=== PATIENT | female | born 1960 | race Caucasian/White ===

== ENCOUNTER → 2016-12-01 | Outpatient (CLI) | payer BC, OTHER ==
[~2016-12-01] MED LIST: IOPAMIDOL (ISOVUE-370) 150 ML BTL IV ONE
== END ==
LOC: FIMAGING 10:24
PROVIDERS: ATTEND Psychiatry & Neurology Neurology
DX: G44.209 Tension-type headache, unspecified, not intractable (principal)
CPT/HCPCS: Q9967

== ENCOUNTER → 2017-08-03 | Outpatient (CLI) | payer BC | LOC: BMCIMAGING 13:19 | PROVIDERS: ATTEND Internal Medicine | DX: J18.9 Pneumonia, unspecified organism (principal) ==

== ENCOUNTER → 2017-08-15 | Outpatient (CLI) | payer BC | LOC: BMCIMAGING 13:05 | PROVIDERS: ATTEND Nurse Practitioner Adult Health | DX: J18.9 Pneumonia, unspecified organism (principal) ==

== ENCOUNTER → 2017-09-11 | Outpatient (CLI) | payer BC | LOC: FIMAGING 10:32 | PROVIDERS: ATTEND Obstetrics & Gynecology Gynecology | DX: Z12.31 Encounter for screening mammogram for malignant neoplasm of breast (principal) | CPT/HCPCS: G0202 ==

== ENCOUNTER 2017-09-25 14:21 | Inpatient (IN) | payer BC ==
--- NOTE | 2017-09-25 15:01 | EDPHY ---
H & P Time Seen by Provider: 09/25/17 14:42 HPI/ROS: CHIEF COMPLAINT: Pneumonia HISTORY OF PRESENT ILLNESS: This 57-year-old woman presents with pneumonia on chest x-ray today which is bilateral. She was treated 6 weeks ago 1st with azithromycin then with Augmentin and finally with Levaquin but only got a little bit better. For the last week she states that she has felt hot and cold , had a fever, a "crackling when I exhale "and a cough that is not productive of sputum or hemoptysis. Chest x-ray today shows bilateral pneumonia and she is sent to the emergency department. No recent travel or immobilization and no family history of DVT or PE. No exposure to birds or other exotic animals, she does have cats at home. No road index but. REVIEW OF SYSTEMS: Eye: no change in vision ENT: no sore throat Cardiac: no chest pain or syncope Pulmonary: HPI Abdomen: no vomiting, diarrhea, abdominal pain Musculoskeletal: Chronic neck or older and lower back pain, unchanged Skin: no rash Neuro: no headache Constitutional: HPI : no urinary symptoms A comprehensive 10 point review of systems is otherwise negative aside from elements mentioned in the history of present illness. PAST MEDICAL HISTORY: Attention deficit hyperactivity disorder on Celexa and Adderall Social history: Nonsmoker, no drugs, no recent travel. General Appearance: Alert and conversant, cooperative. Eyes: No scleral icterus. ENT, Mouth: Normal mucous membranes. Respiratory: Occasional faint crackles heard patient speaks in full sentences. Cardiovascular: Regular rate and rhythm. Gastrointestinal: Abdomen is soft and non tender. Neurological: Alert and oriented x3. Normally conversant. Face symmetric, normal movement and sensation in all extremities. Skin: Warm and dry, no rashes. Musculoskeletal: No calf tenderness. Psychiatric: Not agitated. Emergency Department course/MDM: Low pretest probability for pulmonary embolism. Patient has worsening pneumonia despite outpatient antibiotic therapy. Plan for lactate screening, blood culture, admission for IV antibiotics and D-dimer screening. Meropenem chosen for broad-spectrum given the fact that the patient has been on quinolone, penicillin, and macrolide all recently without improvement. 1540: Discussed with [facility] hospitalist 1545: CTA discussed and consented with patient given elevated D-dimer and persistent pulmonary infiltrates. 1655: CT per Dr. Smith shows pneumonia but no evidence of pulmonary embolism or mass. 1715: CT results discussed with the patient and family. Smoking Status: Never smoked Constitutional: Initial Vital Signs Temperature (C) 37.2 C 09/25/17 14:27 Heart Rate 88 09/25/17 14:27 Respiratory Rate 14 09/25/17 14:27 Blood Pressure 93/56 L 09/25/17 14:27 O2 Sat (%) 94 09/25/17 14:27 O2 Delivery Mode Room Air Allergies/Adverse Reactions: benzoyl peroxide Allergy (Verified 09/25/17 14:24) ibuprofen Allergy (Verified 09/25/17 16:24) ULCER Milk Containing Products [dairy] Allergy (Verified 09/25/17 14:24) FLOUR Allergy (Uncoded 09/25/17 14:24) GRAINS Allergy (Uncoded 09/25/17 14:24) SUGAR Allergy (Uncoded 09/25/17 14:24) Home Medications: Medication Instructions Recorded Albuterol Sulfate [Proair Hfa] 1 puffs IH TID 09/25/17 Cetirizine [ZyrTEC 10 mg (*)] 10 mg PO DAILY 09/25/17 Citalopram Hydrobromide 10 mg PO HS 09/25/17 [Citalopram HBr] Cyclobenzaprine [Flexeril 10 MG 10 mg PO HS 09/25/17 (*)] Dextroamphetamine/Amphetamine 25 mg PO BID@05,10 09/25/17 [Adderall 12.5 mg Tablet] Herbals/Supplements -Info Only 1 ea PO DAILY 09/25/17 [place]-3 Fatty Acids [Fish Oil 1000 1,000 mg PO DAILY 09/25/17 mg (*)] Progesterone, Micronized 100 mg PO HS 09/25/17 [Progesterone] guaiFENesin [Mucinex 600 MG (*)] 600 mg PO BID 09/25/17 traMADol [Ultram 50 mg (*)] 50 mg PO HS 09/25/17 Medical Decision Making - Diagnostics Imaging Results: Imaging Impressions Chest X-Ray 09/25/17 10:43 Impression: 1. Increase in bilateral consolidation/pneumonia. Consider aspiration. Findings discussed with medical van driver with Grayson Moya MD at 11:49 hour, 09/25/2017. Chest/Thorax CTA 09/25/17 15:43 Impression: 1. No visible pulmonary embolus. 2. Dense multifocal consolidation suggesting pneumonia. Findings discussed with Dr. Chay Sanchez on 09/25/2017 at 16:52. Differential Diagnosis: Differential considered including but not limited to pneumonia, pulmonary embolism, aspiration, pulmonary mass. - Data Points Laboratory Results: Laboratory Results 09/25/17 15:05 09/25/17 15:05 09/25/17 09/25/17 09/25/17 15:05 15:05 15:05 WBC RBC Hgb Hct MCV MCH MCHC RDW Plt Count MPV Neut % (Auto) Lymph % (Auto) [place] % (Auto) Eos % (Auto) Baso % (Auto) Nucleat RBC Rel Count Absolute Neuts (auto) Absolute Lymphs (auto) Absolute Monos (auto) Absolute Eos (auto) Absolute Basos (auto) Absolute Nucleated RBC Immature Gran % Immature Gran # PT 14.3 SEC SEC (12.0-15.0) INR 1.09 (0.83-1.16) APTT 35.6 SEC SEC (23.0-38.0) D-Dimer 0.82 ug/mLFEU H ug/mLFEU (0.00-0.50) VBG Lactic Acid 1.0 mmol/L mmol/L (0.7-2.1) Sodium 139 mEq/L mEq/L (134-144) Potassium 4.3 mEq/L mEq/L (3.5-5.2) Chloride 102 mEq/L mEq/L (97-110) Carbon Dioxide 26 mEq/l mEq/l (22-31) Anion Gap 11 mEq/L mEq/L (8-16) BUN 15 mg/dL mg/dL (7-23) Creatinine 0.5 mg/dL L mg/dL (0.6-1.0) Estimated GFR > 60 Glucose 105 mg/dL H mg/dL (70-100) Calcium 9.1 mg/dL mg/dL (8.5-10.4) Total Bilirubin < 0.1 mg/dL L mg/dL (0.1-1.4) 09/25/17 15:05 WBC 7.93 10^3/uL 10^3/uL (3.80-9.50) RBC 3.59 10^6/uL L 10^6/uL (4.18-5.33) Hgb 11.1 g/dL L g/dL (12.6-16.3) Hct 33.2 % L % (38.0-47.0) MCV 92.5 fL fL (81.5-99.8) MCH 30.9 pg pg (27.9-34.1) MCHC 33.4 g/dL g/dL (32.4-36.7) RDW 12.7 % % (11.5-15.2) Plt Count 467 10^3/uL H 10^3/uL (150-400) MPV 8.6 fL L fL (8.7-11.7) Neut % (Auto) 78.4 % H % (39.3-74.2) Lymph % (Auto) 10.8 % L % (15.0-45.0) [place] % (Auto) 7.6 % % (4.5-13.0) Eos % (Auto) 2.3 % % (0.6-7.6) Baso % (Auto) 0.6 % % (0.3-1.7) Nucleat RBC Rel Count 0.0 % % (0.0-0.2) Absolute Neuts (auto) 6.22 10^3/uL 10^3/uL (1.70-6.50) Absolute Lymphs (auto) 0.86 10^3/uL L 10^3/uL (1.00-3.00) Absolute Monos (auto) 0.60 10^3/uL 10^3/uL (0.30-0.80) Absolute Eos (auto) 0.18 10^3/uL 10^3/uL (0.03-0.40) Absolute Basos (auto) 0.05 10^3/uL 10^3/uL (0.02-0.10) Absolute Nucleated RBC 0.00 10^3/uL 10^3/uL (0-0.01) Immature Gran % 0.3 % % (0.0-1.1) Immature Gran # 0.02 10^3/uL 10^3/uL (0.00-0.10) PT INR APTT D-Dimer VBG Lactic Acid Sodium Potassium Chloride Carbon Dioxide Anion Gap BUN Creatinine Estimated GFR Glucose Calcium Total Bilirubin Microbiology Results: MICROBIOLOGY 09/25/17 15:05 Nasal, Sinus - Swab Respiratory Panel (PCR) - Final No Organism Detected Medications Given: Discontinued Medications Meropenem 1 gm/ Sodium (Chloride) 120 mls @ 120 mls/hr IV EDNOW ONE PRN Reason: Protocol Stop: 09/25/17 16:46 Last Admin: 09/25/17 17:04 Dose: 120 mls Departure - Departure Disposition: [facility] Inpatient Acute Clinical Impression: Pneumonia Qualifiers: Pneumonia type: due to unspecified organism Laterality: bilateral Lung location : unspecified part of lung Qualified Code(s): J18.9 - Pneumonia, unspecified organism Condition: Good
[2017-09-25 15:18] LABS: % IMMATURE GRANULYOCYTES 0.3 % (0.0-1.1); ABSOLUTE IMMATURE GRANULOCYTES 0.02 10^3/uL (0.00-0.10); ADD DIFF? NO; ADD MORPH? NO; ADD SCAN? NO; ATYPICAL LYMPHOCYTE FLAG 0 (0-99); FRAGMENT RBC FLAG 0 (0-99); HEMATOCRIT 33.2 % (38.0-47.0); HEMOGLOBIN 11.1 g/dL (12.6-16.3); LEFT SHIFT FLG 0 (0-99); LIPEMIA HEMOLYSIS FLAG 80 (0-99); MEAN CELL HEMOGLOBIN 30.9 pg (27.9-34.1); MEAN CELL HEMOGLOBIN CONCENTR. 33.4 g/dL (32.4-36.7); MEAN CELL VOLUME 92.5 fL (81.5-99.8); MEAN PLATELET VOLUME 8.6 fL (8.7-11.7); PLATELET CLUMPS FLAG 0 (0-99); PLATELET COUNT 467 10^3/uL (150-400); RED BLOOD CELL COUNT 3.59 10^6/uL (4.18-5.33); RED CELL DISTRIBUTION WIDTH 12.7 % (11.5-15.2)
[2017-09-25 15:27] LABS: INR 1.09 (0.83-1.16); PROTIME(PATIENT) 14.3 SEC (12.0-15.0)
[2017-09-25 15:28] LABS: APTT 35.6 SEC (23.0-38.0)
[2017-09-25 15:36] LABS: ANION GAP 11 mEq/L (8-16); CALCIUM 9.1 mg/dL (8.5-10.4); CARBON DIOXIDE 26 mEq/l (22-31); CHLORIDE 102 mEq/L (97-110); CREATININE 0.5 mg/dL (0.6-1.0); GLOMERULAR FILTRATION RATE > 60; GLUCOSE 105 mg/dL (70-100); POTASSIUM 4.3 mEq/L (3.5-5.2); SODIUM 139 mEq/L (134-144)
[2017-09-25 15:40] LABS: BILIRUBIN,TOTAL < 0.1 mg/dL (0.1-1.4)
[2017-09-25] MEDS ORDERED: MEROPENEM 1 GM in NS 100 ML IV ONE (15:47)
[2017-09-25] MEDS ORDERED: ONDANSETRON DISINTEGRATING 4 MG TAB PO PRN (15:48)
[2017-09-25] MEDS ORDERED: ONDANSETRON 4 MG/2 ML VIAL IVP PRN (15:48)
[2017-09-25] MEDS ORDERED: IOPAMIDOL (ISOVUE 370) 100 ML BTL IV ONE (16:01)
--- NOTE | 2017-09-25 18:22 | GHP ---
[f rep st] HISTORY AND PHYSICAL DATE OF ADMISSION: 09/25/2017 CHIEF COMPLAINT: Persistent pneumonia. HISTORY OF PRESENT ILLNESS: This is a 57-year-old female with history of hot flashes and pneumonia diagnosed in July. Has been on several courses of antibiotics since that time, including azithromycin, 7 days of Augmentin, and Levaquin. She was feeling better, but then had a persistent dry cough this past week with shortness of breath. Also, c/o fevers, chills, and sweats. Her temperature was a 100.5 at home today. Increased fatigue and feels as though all the blood has been drained from her body. She has had a normal appetite and p.o. intake. Reports a sore throat, some nausea, and overall weakness. She and her have only traveled within the [facility] including: [place], [place], [place] and [facility] this year. They have 3 cats, no birds. No tobacco or marijuana use. No ill contacts. No diarrhea, nausea, vomiting. No rash. REVIEW OF SYSTEMS: I completed a 10-point review of systems, negative except as noted in HPI. PAST MEDICAL HISTORY: Hot flashes, chronic back and neck pain. PAST SURGICAL HISTORY: Face lift. FAMILY HISTORY: Mother with Parkinson's. Father is healthy, living. SOCIAL HISTORY: Lives with her . No alcohol, tobacco, or illicits. 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 Has 3 cats. No birds. HOME MEDICATIONS: Herbal supplement, albuterol, tramadol 50 mg at bedtime, fish oil, Zyrtec 10 mg daily, guaifenesin, progesterone, Flexeril 10 mg at bedtime, Adderall 25 mg twice daily, Citalopram 10 mg at bedtime. ALLERGIES: Benzoyl peroxide, ibuprofen, milk, flour, grain, sugar. PHYSICAL EXAMINATION: VITAL SIGNS: Temperature 37.6, blood pressure 95/59, heart rate in the 70s, respirations 16, 92% on room air. GENERAL: Well- appearing female sitting up in bed, no acute distress. HEENT: PERRLA. EOMI. Oropharynx clear. CARDIOVASCULAR: Regular rate and rhythm. No murmurs, gallops , rubs. LUNGS: Crackles left base. No wheeze. ABDOMEN: Soft, nontender, nondistended. Positive bowel sounds. GENITOURINARY: No Vasques. MUSCULOSKELETAL: 5/5 upper and lower extremity strength. SKIN: Warm, dry. No rash or lesions. NEUROLOGIC: 2 through 12 intact. PSYCHIATRIC: Alert and oriented x3. LABORATORY DATA: WBC 7, hemoglobin 11, hematocrit 33, platelets 467. D-dimer is 0.82. Coags within normal. Lactate 1. Sodium 139, potassium 4.3, chloride 102, carbon dioxide 26, creatinine 0.5, glucose 105, total bilirubin 0.1. Chest x-ray: Bilateral opacity. CLEAR TO AUSCULTATION: Personally reviewed by me. Multifocal pneumonia. No evidence of PE. ASSESSMENT AND PLAN: 1. Multi-focal pneumonia: failed outpatient therapy. Start broad IV abx. Blood cultures if fevers. Check a sputum culture, Legionella, strep pneumo. ID consult in morning. 2. Hot flashes. Continue home medications. 3. Diet: Regular. 4. DVT prophylaxis. Lovenox. DISPOSITION: Patient warrants inpatient admission given multi focal pneumonia warranting IV antibiotics and ID consult. /[id number]/MODL MTDD
[2017-09-25] MEDS: CITALOPRAM 20 MG TAB PO SCH (20:46)
[2017-09-25] MEDS: ACETAMINOPHEN 325 MG TAB PO PRN (20:46)
[2017-09-25] MEDS: CYCLOBENZAPRINE 10 MG TAB PO SCH (20:47)
[2017-09-25] MEDS: guaiFENesin 600 MG TAB.ER PO SCH (20:47)
[2017-09-25] MEDS: PROGESTERONE,MICR 100 MG CAP PO SCH (20:47)
[2017-09-25] MEDS ORDERED: traMADol 50 MG TAB PO PRN (20:59)
[2017-09-25] MEDS ORDERED: NON-FORMULARY NEW DRUG (Citalopram Hydrobromide [Citalopram Hbr] 10 MG) PO SCH (21:00)
[2017-09-25] MEDS: VANCOMYCIN HCL/NORMAL SALINE 250 ML IV SCH (21:03)
[2017-09-25] MEDS ORDERED: ALBUTEROL INH PREPACK MDI TAKEHOME SCH (22:00)
[2017-09-25] MEDS: CEFEPIME HCL 2 GM in D5W 100 ML IV SCH (22:47)
[2017-09-25] MEDS ORDERED: LR 1,000 ML IV SCH (23:45)
[2017-09-26] MEDS: ALBUTEROL 200 PUFFS/18 GM MDI IH SCH ×4 (02:29→23:16)
[2017-09-26] MEDS ORDERED: AMPHETAMINE PO SCH (05:00)
[2017-09-26] MEDS ORDERED: DEXTROAMPHETAMINE PO SCH (05:00)
[2017-09-26] MEDS: CEFEPIME HCL 2 GM in D5W 100 ML IV SCH ×2 (05:03→14:46)
[2017-09-26] MEDS: VANCOMYCIN HCL/NORMAL SALINE 250 ML IV SCH (05:03)
[2017-09-26] MEDS: ADDERALL 10 MG TAB PO SCH ×2 (05:04→10:16)
[2017-09-26] MEDS: ACETAMINOPHEN 325 MG TAB PO PRN (05:09)
[2017-09-26] MEDS ORDERED: Herbals/Supplements -Info Only PO SCH (09:00)
[2017-09-26] MEDS: guaiFENesin 600 MG TAB.ER PO SCH ×2 (10:15→19:37)
[2017-09-26] MEDS: CETIRIZINE 10 MG TAB PO SCH (10:15)
[2017-09-26] MEDS: ENOXAPARIN 40 MG/0.4 ML SYR SC SCH (10:15)
[2017-09-26] MEDS: OMEGA-3 FATTY ACIDS 1,000 MG CAP PO SCH (10:15)
--- NOTE | 2017-09-26 11:43 | PDMN ---
Medical Necessity Medical necessity: Patient meets inpatient criteria per physician note and [facility] [place] [facility] Pneumonia, Community Acquired (failed O/P treatment: history of recent pneumonia diagnosed in Jul/ several courses of antibiotics since that time, including azithromycin, Augment, Levaquin. Has persistent dry cough, fevers, chills, sweats, increasing fatigue, temp 100.5 at home; syst BP in 70's-80's; CXR shows multifocal pneumonia; anticipated LOS > 2 midnights for IV antibiotics , ID consult.)
[2017-09-26] MEDS ORDERED: AZITHROMYCIN 250 MG TAB PO SCH (14:45)
[2017-09-26] MEDS ORDERED: cefTRIAXone 2 GM in D5W 50 ML IV SCH (15:00)
--- NOTE | 2017-09-26 16:06 | ASMTCMCOM ---
CM Note CM Note Notes: 09/26/2017 Case Management Note Reviewed chart. Case management d/c needs are unclear at this time. There are no PT or OT evals ordered at this time. Pt is on IV antibiotics which may require case management if pt discharges on a longer course of antibiotics. Case Management d/c poc: TBD Case Management to follow. Date Signed: 09/26/2017 04:06 PM Electronically Signed By:Sandrita Shah RN
--- NOTE | 2017-09-26 18:21 | HOSPPROG ---
Hospitalist Progress Note Assessment/Plan: DIAGNOSES: -ongoing/recurrent pneumonia since July of this year with failure of multiple courses outpatient antibiotic therapy no identified organism -mild anemia PLANS: At this point will continue current empiric therapy I reviewed in detail with Dr. Александр Banks, and we have consulted Dr. Artemio Deluna from pulmonology for further diagnostic considerations With ordered serologic testing looking for fungal, H IV, or other causes, she does have some exposure to [facility] May need to consider non infectious etiologies such as hypersensitivity pneumonitis May need to consider bronchoscopic assessment Repeat his CBC in a.m. 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, my review: Exam: alert oriented skin warm dry color ok resps not labored lungs clear BSs heart regular abd soft nondistended nontender, bowel sounds present limbs warm, no edema iv site ok I reviewed chest x-ray from yesterday with images, bilateral midlung infiltrates persist CT scan reported as showing infiltrates but no other significant changes Microbiology data: No growth in culture this date Respiratory pathogen panel negative Objective: Vital Signs Temp Pulse Resp BP Pulse Ox 37.0 C 93 16 92/60 L 96 09/26/17 17:44 09/26/17 16:50 09/26/17 16:50 09/26/17 16:50 09/26/17 16:50 09/25/17 09/26/17 09/27/17 06:59 06:59 06:59 Intake Total 1380 1850 Output Total 900 Balance 480 1850 PT 14.3 SEC (12.0-15.0) 09/25/17 15:05 INR 1.09 (0.83-1.16) 09/25/17 15:05 ICD10 Worksheet Patient Problems: Problems Problem Status Onset Pneumonia Acute
[2017-09-26] MEDS: PROGESTERONE,MICR 100 MG CAP PO SCH (19:35)
[2017-09-26] MEDS: CYCLOBENZAPRINE 10 MG TAB PO SCH (19:37)
[2017-09-26] MEDS: CITALOPRAM 20 MG TAB PO SCH (19:37)
--- NOTE | 2017-09-26 20:16 | GCON ---
[f rep st] CONSULTATION PULMONARY CONSULTATION REASON FOR ADMISSION: Poorly responding pneumonia. The patient is an extremely pleasant 57-year-old white female with a past medical history of chronic back and neck pain. She was diagnosed with pneu johnia in July of this year. She has undergone several rounds of antibiotics including azithromyci n, Augmentin, and Levaquin. She continued to have a cough as well as some fevers. She was subsequen tly admitted to the hospital. In discussion with the patient, she still admits to a cough as well as some fever. She denies any chest pain, pleuritic-type chest pain, or angina equivalent. There is n o weight loss. Currently she is resting comfortably. PAST MEDICAL HISTORY: Significant for chronic back and neck pain. PAST SURGICAL HISTORY: Had a face lift. FAMILY HISTORY: Significant for Parkinson disease. SOCIAL HISTORY: No history of tobacco use. No history of alcohol use. She lives with her . 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 She has 3 cats and no birds. ALLERGIES: Benzoyl peroxide, ibuprofen, milk, flour, grain, and sugar. HOME MEDICATIONS: Herbal supplements, albuterol, tramadol, fish oil, Zyrtec, guaifenesin, progestero ne, Flexeril, Adderall, and citalopram. REVIEW OF SYSTEMS: I completed a 10-point review of systems which was negative except for as noted i n HPI. PHYSICAL EXAM: VITAL SIGNS: Blood pressure is 95/65, pulse 86, respirations 12, temperature 36.6, o xygen saturation 92% on room air. GENERAL: She is a well-developed, well-nourished, 57-year-old whi te female who is resting comfortably in no acute distress. HEENT: Eyes are PERRLA, EOMI. Throat sh ows no erythema or tonsillar hypertrophy. NECK: Supple. There is no cervical adenopathy. HEART: Regular rate and rhythm without murmurs, rubs, gallops. LUNGS: Diminished breath sounds and bibasil ar crackles, left greater than right. ABDOMEN: Soft, nontender. Bowel sounds are present in all 4 quadrants. EXTREMITIES: No clubbing, cyanosis, or edema. LABORATORY DATA: White count 7.9, hemoglobin 11, hematocrit 33, platelet count 467. INR is 1.09. S odium 139, potassium 4.3, chloride 102, CO2 is 26, BUN 15, creatinine 0.5, glucose is 105. Urine leg ionella antigen and urine Strep pneumonia antigen are negative. CT scan of the chest shows increased infiltrates in the right middle lobe, as well as the bilateral lower lobes. IMPRESSION: Poorly resolving pneumonia, etiology of which is unclear. Query whether this may be int erstitial lung disease, possibly cryptogenic organizing pneumonia. RECOMMENDATIONS: Will perform fiberoptic bronchoscopy soonest. /[id number]/MODL
--- NOTE | 2017-09-26 20:58 | GCON ---
[f rep st] CONSULTATION INFECTIOUS DISEASE CONSULTATION DATE OF CONSULTATION: 09/26/2017 REFERRING PHYSICIAN: Angela Brumfield MD REASON FOR CONSULTATION: Pneumonia, which has been unresponsive to prior antibiotic therapy. HISTORY OF PRESENT ILLNESS: The patient is a 57-year-old female without significant past medical his tory, who I am asked to see in consultation for pneumonia which has been unresponsive to prior antimi crobial therapy. The patient describes developing severe fatigue in July such that she felt like "the blood had been drained from her body." She was seen by her primary care physician at the time w ith physical exam findings prompting a chest x-ray. Chest x-ray at that time showed a right lower lo be infiltrate consistent with pneumonia. The patient was treated with azithromycin without clinical improvement. Followup x-ray on 08/15/2017, showed increasing extent of right lower lobe consolidatio n. The patient was treated with a course of Augmentin without significant improvement. She describe s having ongoing presence of fever with occasional chills and significant night sweats which are dren emmanuel and require her to change her bed linens or pajamas. She has not experienced weight loss. Cou gh has been dry in nature without associated pleuritic chest pain. She does feel dyspneic and has ex perience decreased exercise tolerance. The patient continued to have persistent symptoms, prompting repeat chest x-ray on 09/25/2017, as well as a temperature in the 102 range. Chest x-ray showed an i ncrease in right-sided consolidation as well as development of new consolidation in the left lower lo be. Prior to this x-ray, the patient had also completed a course of levofloxacin due to persistent s ymptoms without significant improvement or resolution. Based on the chest x-ray findings, patient wa s admitted for further evaluation and care. CT scan of the chest was performed which showed dense multifocal consolidation involving the posterio r right upper and middle lobe as well as the left lower lobe and anterior portion of the right lower lobe. No adenopathy was present. The patient does not have associated myalgias, arthralgias, nausea , vomiting, diarrhea, skin rash, hemoptysis, or hematuria. The patient has traveled earlier this r to [place], [facility], [place] and [place]. No large dust storms while in [place]. Th e patient has 3 cats which are primarily indoor cats but do go outside. They have come back to the ouse with baby rabbits or mice. These have been cleaned up by her . She does have a jet dylon tub and uses this frequently at home. No exposure to farm animals. No exposures to caves. No p rior issues with pneumonia earlier in life. The patient has been empirically started on vancomycin a nd cefepime given her progressive clinical findings. Given the above clinical circumstances, infectious disease consultation is now requested for assessme nt of worsening pneumonia, which has not been responsive to prior antibiotic therapy. PAST MEDICAL HISTORY: Chronic pain. PAST SURGICAL HISTORY: Face-lift. CURRENT MEDICATIONS: Cefepime 2 g IV q.8 hours, vancomycin 1 g IV q.12 hours, fish oil 1000 mg orall y daily, progesterone 100 mg p.o. q.h.s., Ultram 50 mg p.o. q.h.s. and as needed for pain, Mucinex 60 0 mg p.o. b.i.d., Lovenox 40 mg subcu daily, Flexeril 10 mg p.o. q.h.s., Celexa 10 mg p.o. q.h.s., Zy rtec 10 mg p.o. daily, Adderall 25 mg p.o. b.i.d., albuterol 2 puffs t.i.d. ALLERGIES: No known drug allergies. SOCIAL HISTORY: Patient does not smoke, drink significant alcohol or use drugs. Travel history and animal exposures as outlined above. Describes having previous HIV antibody testing, which was negati ve. FAMILY HISTORY: Mother with Parkinson disease. 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 PHYSICAL EXAMINATION: VITAL SIGNS: Temperature maximum 37.8, temperature current 37.0, heart rate 9 3, respiratory rate 16, blood pressure 92/60, oxygen saturation 96% on room air. GENERAL: The patie nt is well-nourished, well-developed in no acute distress. She appears nontoxic. HEENT: There is n o scleral icterus, conjunctival injection, or conjunctival petechiae. Oropharynx is clear without le sions. Dentition is in good repair. Mucous membranes are moist. There is no nasal discharge. Ther e is no tenderness over the frontal, maxillary or mastoid area. NECK: Supple without palpable lymph adenopathy or thyromegaly. CHEST: Clear to auscultation bilaterally without adventitious sounds. T he respiratory effort is normal. CARDIOVASCULAR: Regular rate and rhythm without murmurs, gallops, or rubs. ABDOMEN: Soft, nontender, nondistended. There is no palpable organomegaly. Bowel sounds are present. MUSCULOSKELETAL: There is no cyanosis, clubbing, or edema. No joint abnormalities not ed. SKIN: No rashes present. No stigmata of endocarditis. Skin is warm and dry to touch. NEUROLO GIC: Patient is alert and interacts appropriately with examiner. Cranial nerves 2-12 are grossly in tact. Sensation is grossly intact. Muscle tone and bulk are normal. LYMPHATICS: No cervical or mcmahan praclavicular nodes palpable. LABORATORY DATA: White blood cell count 7.9, hematocrit 33.2, platelets 467, neutrophils 78%. Serum creatinine is 0.5, AST 21, ALT 26 (09/07/2017). Venous lactate is 1.0. Urine Streptococcus pneumoniae and legionella antigens are negative. CT scan as outlined above which was reviewed and interpreted by me today. IMPRESSION: Bilateral pneumonia which has been unresponsive to antibiotic therapy: Considerations i nclude less typical infectious etiologies versus non-infectious etiologies such as cryptogenic organi zing pneumonia or other inflammatory processes. The patient's lack of leukocytosis is unusual for ty pical bacterial pneumonia. She has received several courses of antibiotic without improvement. Give n her travel to [place] and [place], we will obtain coccidioides antibody to ensure not related to coccidioidomycosis. With her cats bringing in animal carcasses, we will also assess for tularemia . We will obtain human immunodeficiency virus antibody and cryptococcal antigen screen. We will als o assess quantitative immunoglobulins and anti-neutrophil cytoplasmic antibodies. Given the signific ant infiltrates with undefined etiology, I think pulmonary consultation with bronchoscopy should be p erformed with possible transbronchial biopsy if possible to assess for inflammatory etiology as well. RECOMMENDATIONS: 1. Discontinue vancomycin and cefepime. I suspect MRSA or pseudomonas are unlikely etiologies. 2. Ceftriaxone 2 g IV q.24 hours and azithromycin 500 mg orally daily to cover typical pathogens of community-acquired pneumonia. 3. Serologic testing for coccidioidomycosis, cryptococcosis and tularemia. 4. Check serum immunoglobulins and ANCA. 5. Check HIV antibody. 6. Pulmonary consultation for consideration of bronchoscopy with biopsy if feasible. 7. Thank you for this consultation. We will continue to follow the patient with you. /[id number]/MODL
[2017-09-26] MEDS ORDERED: traMADol 50 MG TAB PO SCH (21:00)
[2017-09-27] MEDS: ADDERALL 10 MG TAB PO SCH ×2 (05:27→09:50)
[2017-09-27 06:12] LABS: % IMMATURE GRANULYOCYTES 0.3 % (0.0-1.1); ABSOLUTE IMMATURE GRANULOCYTES 0.02 10^3/uL (0.00-0.10); ADD DIFF? NO; ADD MORPH? NO; ADD SCAN? NO; ATYPICAL LYMPHOCYTE FLAG 10 (0-99); FRAGMENT RBC FLAG 0 (0-99); HEMATOCRIT 33.2 % (38.0-47.0); HEMOGLOBIN 10.6 g/dL (12.6-16.3); LEFT SHIFT FLG 0 (0-99); LIPEMIA HEMOLYSIS FLAG 80 (0-99); MEAN CELL HEMOGLOBIN 29.9 pg (27.9-34.1); MEAN CELL HEMOGLOBIN CONCENTR. 31.9 g/dL (32.4-36.7); MEAN CELL VOLUME 93.8 fL (81.5-99.8); MEAN PLATELET VOLUME 8.8 fL (8.7-11.7); PLATELET CLUMPS FLAG 0 (0-99); PLATELET COUNT 485 10^3/uL (150-400); RED BLOOD CELL COUNT 3.54 10^6/uL (4.18-5.33); RED CELL DISTRIBUTION WIDTH 12.9 % (11.5-15.2)
[2017-09-27] MEDS: CETIRIZINE 10 MG TAB PO SCH (09:50)
[2017-09-27] MEDS: guaiFENesin 600 MG TAB.ER PO SCH (09:50)
[2017-09-27] MEDS: ENOXAPARIN 40 MG/0.4 ML SYR SC SCH (10:03)
[2017-09-27] MEDS: OMEGA-3 FATTY ACIDS 1,000 MG CAP PO SCH (10:03)
--- NOTE | 2017-09-27 10:23 | PCMIDPN ---
Assessment/Plan: Assessment/Plan: * Bilateral pneumonia: Diagnostic considerations include infectious and non infectious etiologies. Procalcitonin is low and lack of prior response to antibacterial therapy make typical bacterial etiology unlikely. Will therefore discontinue ceftriaxone and azithromycin. Plans for bronchoscopy today to assess for other etiologies with cryptogenic organizing pneumonia remaining a consideration. Multiple serologic studies are pending. Time spent, 25 min, of which greater than half was spent in education/counseling /coordination of care related to bilateral pneumonia. 09/27/17 10:20 09/27/17 10:23 Subjective: Patient feels better today with no further fever. Up walking in the halls without difficulty. Objective: Vital Signs Temp Pulse Resp BP Pulse Ox 36.5 C 83 16 104/52 L 90 L 09/27/17 08:00 09/27/17 08:00 09/27/17 08:00 09/27/17 08:00 09/27/17 08:00 Laboratory Results 09/27/17 05:52 09/26/17 09/27/17 09/28/17 05:59 05:59 05:59 Intake Total 1380 2300 Output Total 900 Balance 480 2300 Ceftriaxone # 1 Azithromycin # 1 Blood cultures x2 no growth Laboratory Tests 09/26/17 09/27/17 16:06 05:52 Procalcitonin 0.05 HIV 1&2 Antibody NEGATIVE - Physical Exam General Appearance: alert, no apparent distress, non-toxic EENT: No scleral icterus, No thrush, No conjunctival petechiae Respiratory: lungs clear, No respiratory distress Cardiac/Chest: regular rate, rhythm ICD10 Worksheet Patient Problems: Problems Problem Status Onset Pneumonia Acute
[2017-09-27] MEDS ORDERED: LIDOCAINE 1% 300 MG/30 ML SDV ONE (11:13)
[2017-09-27] MEDS ORDERED: LIDOCAINE 2% JELLY 5 ML TUBE ONE (11:13)
[2017-09-27] MEDS ORDERED: LIDOCAINE HCL 4% TOPICAL SOLN 50ML ONE (11:13)
[2017-09-27] MEDS ORDERED: ALBUTEROL 3 ML DEYVIAL ONE (11:17)
[2017-09-27] MEDS ORDERED: fentaNYL 100 MCG/2 ML INJ ONE (11:30)
[2017-09-27] MEDS ORDERED: MIDAZOLAM 2 MG/2 ML VIAL ONE (11:30)
[2017-09-27] MEDS ORDERED: LR 1,000 ML IV ONE (11:40)
[2017-09-27] MEDS ORDERED: DEXAMETHASONE 4 MG TAB PO SCH (11:45)
[2017-09-27] MEDS: ALBUTEROL 200 PUFFS/18 GM MDI IH SCH (11:49)
--- NOTE | 2017-09-27 12:04 | PDPROPOC ---
Sedation Plan of Care Sedation Plan of Care: vital signs stable, mental status noted, patient educated of risks, benefits, alternatives, patient can tolerate sedation ASA Classification: ASA 1 Planned drugs: fentanyl, midazolam Mallampati Score: Class 1 Mallampati Reference Image: Patient passed 3-3-2 rule?: Yes
--- NOTE | 2017-09-27 12:41 | BVPULMO ---
[facility]- Pulmonology Patient Name: Cintia Plasencia Procedure Date: 09/27/2017 12:02 PM Patient Type: Outpatient Attending MD/ER Physician: Artemio Deluna MD Procedure: Bronchoscopy Indications: Atelectasis of the left lower lobe, Atelectasis of the right middle lobe, Atelectasis of the right lower lobe, Persistent atelectasis Providers: Artemio Deluna MD Medicines: Lidocaine applied to nares and subglottic space, Lidocaine 4% via nebulizer wit h Albuterol 2.5 mg, Fentanyl 125 mcg IV, Midazolam 6 mg IV Complications: No immediate complications Procedure: After informed consent, a time out was performed. N95 masks were worn, and the procedure was done in a negative pressure room. The patient was given appropria te topical anesthesia and intravenous sedation. The fiberopic bronchoscope was pas sed via a bite block orally into the larynx and subsequently into the lower trachea bronchial tree. Throughout the procedure, the patient's blood pressure, pulse, and oxygen saturations were monitored continuously. The Bronchoscope (Video) was introduced through the mouth and advanced to the tracheobronchial tree. The procedure was accomplished without difficulty. The patient tolerated the proced ure well. The total duration of the procedure was 22 minutes. Total fluoroscopy kanwal e was 2 minutes. Findings: Transbronchial biopsies of an area of infiltration were performed in the left l ower lobe using alligator forceps and sent for histopathology examination. The proce dure was guided by fluoroscopy. Six biopsy passes were performed. Six biopsy samples were obtained. Washings were obtained in the left lower lobe and sent for cell count, bacteria l culture, viral smears & culture, and fungal & AFB analysis and cytology. The re turn was blood-tinged. Post Op Diagnosis: - Transbronchial lung biopsies were performed. - Washings were obtained. - The examination was normal. Estimated Blood Loss: Estimated blood loss: none. Recommendation: - Await biopsy, culture, cytology and washing results. Attending Participation: I personally performed the entire procedure. Artemio Deluna MD Artemio Deluna MD 09/27/2017 12:41:21 PM This report has been signed electronicallyThomas MD Regi Number of Addenda: 0 Note Initiated On: 09/27/2017 12:02 PM [email or web address]
--- NOTE | 2017-09-27 13:27 | SOAPPROG ---
SOAP Progress Note Assessment/Plan: Assessment/plan: * Poorly resolving pneumonia-very with this is interstitial lung disease, perhaps cryptogenic organizing pneumonia -bronch today * Respiratory-stable on room air Subjective: Resting comfortably. Still ir with cough. Objective: Vital Signs Temp Pulse Resp BP Pulse Ox 37.5 C 82 28 H 92/52 L 98 09/27/17 12:44 09/27/17 11:31 09/27/17 12:34 09/27/17 13:00 09/27/17 13:01 Laboratory Results 09/27/17 05:52 09/26/17 09/27/17 09/28/17 05:59 05:59 05:59 Intake Total 1380 2300 Output Total 900 Balance 480 2300 PT 14.3 SEC (12.0-15.0) 09/25/17 15:05 INR 1.09 (0.83-1.16) 09/25/17 15:05 Physical Exam - Physical Exam General Appearance: alert, no apparent distress EENT: PERRL/EOMI Neck: non-tender, full range of motion, supple, normal inspection Respiratory: crackles (Bibasilar) Cardiac/Chest: normal peripheral pulses, regular rate, rhythm Abdomen: normal bowel sounds, non-tender, soft Pelvic Exam: deferred Rectal: deferred Skin: normal color, warm/dry ICD10 Worksheet Patient Problems: Problems Problem Status Onset Pneumonia Acute
--- NOTE | 2017-09-27 15:21 | ASMTCMCOM ---
CM Note CM Note Notes: Pt is no longer on IV ABX. She will DC today with no DC needs. Date Signed: 09/27/2017 03:21 PM Electronically Signed By:Mary Trinidad LCSW
[2017-09-27 15:26] VITALS: BP 101/56; PULSE 94; RESP 14; TEMP 97.6; O2SAT 91
--- NOTE | 2017-09-27 16:37 | ASDISCHSUM ---
Discharge Information Plan Status:Home with No Needs Medically Cleared to Leave: Discharge Date:09/27/2017 03:50 PM CM D/C Disposition: ADT D/C Disposition:Home, Routine, Self-Care Projected Discharge Date:09/27/2017 03:50 PM Transportation at D/C: Discharge Delay Reason: Follow-Up Date:09/27/2017 03:50 PM Discharge Slot: Final Diagnosis: Placement Information Patient Contact Information Contact Name:ISA Relationship: Address:[address] City:[place] Alternate Phone: [facility]/Zip Code:[place] [address] Email: Financial Information Financial Class:HMO and PPO Plans Primary Plan Desc: OUT OF STATE PPO Primary Plan Number:[id number] Secondary Plan Desc: Secondary Plan Number: Assessment Information [facility] CM Progress Note CM Note CM Note Notes: 09/26/2017 Case Management Note Reviewed chart. Case management d/c needs are unclear at this time. There are no PT or OT evals ordered at this time. Pt is on IV antibiotics which may require case management if pt discharges on a longer course of antibiotics. Case Management d/c poc: TBD Case Management to follow. Date Signed: 09/26/2017 04:06 PM Electronically Signed By:Sandrita Shah RN [facility] CM Progress Note CM Note CM Note Notes: Pt is no longer on IV ABX. She will DC today with no DC needs. Date Signed: 09/27/2017 03:21 PM Electronically Signed By:Mary Trinidad LCSW Intervention Information
[2017-09-27 16:42] LABS: IMMUNOGLOBULIN A 177 mg/dL (61 - 356); IMMUNOGLOBULIN G 839 mg/dL (767 - 1590); IMMUNOGLOBULIN M 85 mg/dL (37 - 286)
[2017-09-29 08:44] LABS: c-ANCA Negative (Negative); p-ANCA Negative (Negative)
[2017-09-29 15:57] LABS: FRANCISELLA (TULAREMIA) AB <1:20
[2017-10-02 09:21] LABS: COCCIDIOIDES ANTIBODY SERUM Negative (Negative); COCCIDIOIDES IGG IMMUNODIF Negative (Negative); COCCIDIOIDES IGM IMMUNODIF Negative (Negative)
== END 2017-09-27 15:50 | disposition home or self-care (01) | DRG 167 ==
LOC: EDSTATUS 14:21 → F1N 17:57
PROVIDERS: ADMIT Internal Medicine; ATTEND Internal Medicine
PROC: 0BBJ8ZX Excision of Left Lower Lung Lobe, Via Natural or Artificial Opening Endoscopic, Diagnostic (ICD-10-PCS; principal; 2017-09-27 12:00)
DX: J18.9 Pneumonia, unspecified organism (principal); J98.11 Atelectasis; N95.1 Menopausal and female climacteric states; Z87.01 Personal history of pneumonia (recurrent)
CPT/HCPCS: 82784-90; 86255-90; 86635-90; 86668-90; 87449-90; J0171; J0692; J0696; J1650; J2185; J2250; J3010; J3370; Q9967

== ENCOUNTER → 2017-10-10 | Outpatient (CLI) | payer BC | LOC: BMCIMAGING 11:10 | PROVIDERS: ATTEND Internal Medicine | DX: J18.9 Pneumonia, unspecified organism (principal) ==

== ENCOUNTER 2018-02-28 08:50 | Emergency (ER) | payer BC ==
--- NOTE | 2018-02-28 09:12 | EDPHY ---
H & P Time Seen by Provider: 02/28/18 09:01 HPI/ROS: Chief complaint. Abdominal pain HPI. 58-year-old female presents emergency department with upper abdominal pain and pain behind her sternum that started last night. She has a recent diagnosis of Costa's esophagus and had an endoscopy for diagnosis on February 08. She was started on omeprazole and Bethanechol and has been on these meds for about 10 days. With her abdominal pain and chest discomfort last night she was dizzy and somewhat lightheaded. She had nausea with vomiting x1 it is. No fever cough. No shortness of breath. Pain is described as achy and maybe somewhat burning behind the sternum. She ate breakfast this morning without difficulty. She has no symptoms now. She is concerned that she maybe has had a heart attack. ROS Constitutional. no fever/chills, no weakness Eyes. no problems with vision ENT. no sore throat, no nasal drainage Cardiovascular. Chest pain Respiratory. no shortness of breath, no cough Abdominal. Upper abdominal pain with nausea and vomit . no problems urinating MS. no calf pain/swelling, no neck/back pain, no joint pain Skin. no rash Lymph. no swollen glands Neuro. no headache, no dizziness, no difficulty walking or with speech Past Medical/Surgical History: Chronic pain, recent diagnosis Costa's esophagus Social History: , nonsmoker, no alcohol Smoking Status: Never smoked Physical Exam: General Appearance: Alert well-developed female mild distress vital signs are stable Eyes: Pupils equal and round no pallor or injection. ENT, Mouth: Mucous membranes are moist. Respiratory: There are no retractions, lungs are clear to auscultation. Cardiovascular: Regular rate and rhythm. Gastrointestinal: Abdomen is soft and nontender, no masses, bowel sounds normal. Neurological: Awake and alert, sensory and motor exams grossly normal. Skin: Warm and dry, no rashes. Musculoskeletal: Neck is supple nontender. Extremities symmetrical, full range of motion. Psychiatric: Patient is oriented X 3, there is no agitation. Constitutional: Initial Vital Signs Temperature (C) 36.7 C 02/28/18 08:54 Heart Rate 94 02/28/18 08:54 Respiratory Rate 18 02/28/18 08:54 Blood Pressure 81/66 L 02/28/18 08:54 O2 Sat (%) 97 05/24/18 08:54 O2 Delivery Mode Room Air Allergies/Adverse Reactions: benzoyl peroxide Allergy (Verified 02/28/18 08:53) ibuprofen Allergy (Verified 02/28/18 08:53) ULCER Milk Containing Products [dairy] Allergy (Verified 02/28/18 08:53) FLOUR Allergy (Uncoded 09/25/17 14:24) GRAINS Allergy (Uncoded 09/25/17 14:24) SUGAR Allergy (Uncoded 09/25/17 14:24) Home Medications: Medication Instructions Recorded Cetirizine [ZyrTEC 10 mg (*)] 10 mg PO DAILY 09/25/17 Citalopram Hydrobromide 10 mg PO HS 09/25/17 [Citalopram HBr] Cyclobenzaprine [Flexeril 10 MG 10 mg PO HS 09/25/17 (*)] Dextroamphetamine/Amphetamine 25 mg PO BID@,09/25/17 [ADDERALL 12.5 MG TABLET] Herbals/Supplements -Info Only 1 ea PO DAILY 09/25/17 Beverly-3 Fatty Acids [Fish Oil 1000 1,000 mg PO DAILY 09/25/17 mg (*)] Progesterone, Micronized 100 mg PO HS 09/25/17 [Progesterone] traMADol [Ultram 50 mg (*)] 50 mg PO HS 09/25/17 Acetaminophen [Tylenol 325mg (*)] 650 mg PO Q4HRS PRN tab 09/27/17 Albuterol Sulfate [Proair Hfa] 2 puffs IH TID PRN #0 09/27/17 guaiFENesin [Mucinex 600 MG (*)] 600 mg PO BID PRN #0 09/27/17 Bethanechol 02/28/18 Omeprazole 02/28/18 Medical Decision Making - Diagnostics EKG Interpretation: EKG interpreted by me shows normal sinus rhythm normal interval and axis. QRS is normal there is no significant ST elevation or depression. No arrhythmia. The rate is 80 Procedures: IV normal saline, monitor ED Course/Re-evaluation: Re-evaluation at 10:40 a.m.. Patient is stable. No symptoms. She and I discussed EKG and lab results. We discussed treatment plan including criteria for return and importance of follow-up and further evaluation. She expresses understanding and agreement Differential Diagnosis: Food poisoning, gastritis, I considered pancreatitis, acute coronary syndrome. - Data Points Laboratory Results: Laboratory Results 02/28/18 09:05 02/28/18 09:05 02/28/18 02/28/18 09:05 09:05 WBC 12.26 10^3/uL H 10^3/uL (3.80-9.50) RBC 4.14 10^6/uL L 10^6/uL (4.18-5.33) Hgb 12.6 g/dL g/dL (12.6-16.3) Hct 38.7 % % (38.0-47.0) MCV 93.5 fL fL (81.5-99.8) MCH 30.4 pg pg (27.9-34.1) MCHC 32.6 g/dL g/dL (32.4-36.7) RDW 15.0 % % (11.5-15.2) Plt Count 246 10^3/uL 10^3/uL (150-400) MPV 10.5 fL fL (8.7-11.7) Neut % (Auto) 84.3 % H % (39.3-74.2) Lymph % (Auto) 7.4 % L % (15.0-45.0) [place] % (Auto) 7.5 % % (4.5-13.0) Eos % (Auto) 0.2 % L % (0.6-7.6) Baso % (Auto) 0.4 % % (0.3-1.7) Nucleat RBC Rel Count 0.0 % % (0.0-0.2) Absolute Neuts (auto) 10.33 10^3/uL H 10^3/uL (1.70-6.50) Absolute Lymphs (auto) 0.91 10^3/uL L 10^3/uL (1.00-3.00) Absolute Monos (auto) 0.92 10^3/uL H 10^3/uL (0.30-0.80) Absolute Eos (auto) 0.02 10^3/uL L 10^3/uL (0.03-0.40) Absolute Basos (auto) 0.05 10^3/uL 10^3/uL (0.02-0.10) Absolute Nucleated RBC 0.00 10^3/uL 10^3/uL (0-0.01) Immature Gran % 0.2 % % (0.0-1.1) Immature Gran # 0.03 10^3/uL 10^3/uL (0.00-0.10) Sodium 140 mEq/L mEq/L (135-145) Potassium 4.4 mEq/L mEq/L (3.3-5.0) Chloride 103 mEq/L mEq/L (97-110) Carbon Dioxide 27 mEq/l mEq/l (22-31) Anion Gap 10 mEq/L mEq/L (8-16) BUN 23 mg/dL mg/dL (7-23) Creatinine 0.5 mg/dL L mg/dL (0.6-1.0) Estimated GFR > 60 Glucose 98 mg/dL mg/dL (70-100) Calcium 9.3 mg/dL mg/dL (8.5-10.4) Troponin I < 0.012 ng/mL ng/mL (0.000-0.034) Lipase 150 IU/L IU/L (23-300) Departure - Departure Disposition: Home, Routine, Self-Care Clinical Impression: Abdominal pain Qualifiers: Abdominal location: epigastric Qualified Code(s): R10.13 - Epigastric pain Condition: Good Instructions: Acute Abdominal Pain (ED) Additional Instructions: Return for worsening symptoms. Call [facility] for further discussion and follow-up of your medication. Return for worsening chest discomfort or abdominal pain including shortness of breath. Recheck in 1-2 days for continuing symptoms Referrals: Luther Molina MD [Primary Care Provider] - 1 day, if not improved
--- NOTE | 2018-02-28 09:32 | CPEKG ---
Heart Rate: 80 RR Interval: 750 P-R Interval: 128 QRSD Interval: 92 QT Interval: 384 QTC Interval: 443 P [place]: 75 QRS [place]: -19 T Wave [place]: 66 EKG Severity - OTHERWISE NORMAL ECG - EKG Impression: SINUS RHYTHM EKG Impression: BORDERLINE LEFT AXIS DEVIATION Electronically Signed By: Александр Walls 28-Feb-2018 15:47:04
[2018-02-28 09:34] LABS: PLATELET COUNT 246 10^3/uL (150-400)
[2018-02-28 10:00] VITALS: BP 87/52
== END 2018-02-28 10:57 | disposition home or self-care (01) ==
DX: R10.13 Epigastric pain (principal)

== ENCOUNTER → 2018-11-12 | Outpatient (CLI) | payer BC | LOC: FIMAGING 14:02 | PROVIDERS: ATTEND Obstetrics & Gynecology Gynecology | DX: Z12.31 Encounter for screening mammogram for malignant neoplasm of breast (principal) ==

== ENCOUNTER → 2018-11-30 | Outpatient (CLI) | payer BC | LOC: BMCIMAGING 15:39 | PROVIDERS: ATTEND Family Medicine | DX: R50.9 Fever, unspecified (principal) ==